=== PATIENT | female | born 1940 | race African-American/Black ===

== ENCOUNTER 2022-09-30 17:11 | Inpatient (IN) | payer OTHER ==
[~2022-09-30] VITALS: Ht 165.1 cm; Wt 57.2 kg
[2022-09-30] MEDS ORDERED: IV NORMAL SALINE 1000 ML BAG IV ONE (17:30)
[2022-09-30] MEDS ORDERED: ONDANSETRON 4 MG/2 ML VIAL ONE (18:08)
[2022-09-30] MEDS ORDERED: AMIODARONE HCL IV 900 MG in IV DEXTROSE 5% 500 ML IV ONE (18:30)
[2022-09-30] MEDS ORDERED: AMIODARONE HCL IV 150 MG in IV DEXTROSE 5% 100 ML IV ONE (18:30)
[2022-09-30] MEDS ORDERED: AMIODARONE HCL IV 900 MG in IV DEXTROSE 5% 482 ML IV PRN (18:45)
--- NOTE | 2022-09-30 19:05 | NUR ---
PICC line placed to left upper arm.
--- NOTE | 2022-09-30 19:10 | NUR ---
LAB AT BEDSIDE, RN DRAWING BLOOD FROM PIC LINE.
--- NOTE | 2022-09-30 19:22 | NUR ---
Dr. Birch given verbal to cancel Amiodarone bolus drip.
[2022-09-30 19:24] LABS: HEMATOCRIT 22.1 % (31.2-41.9); MEAN CORPUSCULAR HEMOGLOBIN 32.2 uug (24.7-32.8); MEAN CORPUSCULAR VOLUME 97.5 fL (75.5-95.3); PLATELET COUNT (AUTO) 113 K/uL (179-408)
[2022-09-30 19:35] LABS: CARBON DIOXIDE 27 mmol/L (21-32); CHLORIDE 98 mmol/L (98-107); CREATININE 1.9 mg/dL (0.6-1.3); GLUCOSE 245 mg/dL (74-106); POTASSIUM 3.3 mmol/L (3.5-5.1); UREA NITROGEN, BLOOD 19 mg/dL (7-18)
[2022-09-30 19:44] LABS: ALANINE AMINOTRANSFERASE 16 U/L (14-59); ALKALINE PHOSPHATASE 139 U/L (50-136); ASPARTATE AMINOTRANSFERASE 28 U/L (15-37); BILIRUBIN,DIRECT 0.2 mg/dL (0.0-0.2); BILIRUBIN,TOTAL 0.4 mg/dL (0.2-1.0); TOTAL PROTEIN, SERUM 4.6 g/dL (6.4-8.2)
--- NOTE | 2022-09-30 20:05 | NUR ---
Henok Tabares spoke to Vkias FRAUSTO, Dr Napoles. Waiting for transfer info at this time.
[2022-09-30] MEDS ORDERED: CEFTRIAXONE 1 G in IV DEXTROSE 5% 50 ML IV ONE (20:30)
[2022-09-30] MEDS ORDERED: ASPIRIN 81 MG TAB.CHEW PO ONE (20:30)
[2022-09-30] MEDS ORDERED: VANCOMYCIN 1G/D5W 200 ML PIGGYBACK IV ONE (20:30)
[2022-09-30] MEDS ORDERED: CEFTRIAXONE /D5W 50ML IVPB **ER PYXIS IV ONE (20:39)
--- NOTE | 2022-09-30 22:25 | NUR ---
Vikas gave autherization for patient to be admitted her to Dr Birch. Paged Epic panel election watcher at this time. Waiting Dr Pineda to call back.
--- NOTE | 2022-09-30 22:34 | NUR ---
Dr Birch spoke with Dr Pineda who accepts patient.
[2022-09-30] MEDS ORDERED: MORPHINE SULFATE 2 MG/1 ML DISP.SYRIN IV PRN (23:00)
[2022-09-30] MEDS ORDERED: ACETAMINOPHEN 325 MG TABLET PO PRN (23:00)
[2022-09-30] MEDS ORDERED: ONDANSETRON 4 MG/2 ML VIAL IV PRN (23:00)
[2022-09-30] MEDS ORDERED: HEPARIN/D5W DRIP 500 ML IV PRN (23:00)
--- NOTE | 2022-09-30 23:54 | NUR ---
Called third floor requesting tele bed. Patient has been admitted to room 330
--- NOTE | 2022-10-01 01:05 | NUR ---
Called third floor to give report, RN unavaliable. Waiting for call back.
--- NOTE | 2022-10-01 01:10 | NUR ---
Report given to Wilder TRACY.
[2022-10-01 02:00] VITALS: BP 110/54
[2022-10-01] MEDS ORDERED: PIPERACILLIN/TAZO 2.25 G in IV DEXTROSE 5% 50 ML IV SCH ×2 (02:00→08:00)
--- NOTE | 2022-10-01 02:00 | NUR ---
Admitted patient in tele floor, with ACS diagnosis, patient alert oriented, with right chest dialysis marian catheter, patient also has left upper arm PICC line. sinus rhythm, no complain of pain, kept comfortable, call light within reach.
--- NOTE | 2022-10-01 02:05 | NUR ---
Patient taken to third floor room 330 via gurney with personal belongings. Patient in stable condition no signs of distress. Will RN aware of patients arrival
[2022-10-01] MEDS ORDERED: PIPERACILLIN/TAZOBACTAM/D5W 50 ML ONE (03:05)
[2022-10-01] MEDS ORDERED: PANTOPRAZOLE SODIUM 40 MG TABLET.DR PO SCH (07:00)
--- NOTE | 2022-10-01 07:00 | NUR ---
Admitted patient from ER with existing order to give Heparin drip due to troponin being high. ER nurse did not report that patient has heparin order, and received patient with no Heparin drip going. Patient Heparin drip started in AM. Patient alert oriented, verbally responsive, no adverse changes noted, tele rhythm remain sinus rhythm, v/s stable, blood work was monitored, v/s was monitored, Dr Galalrdo aware of heparin medication started in AM. cont to monitor
--- NOTE | 2022-10-01 07:30 | NUR ---
Patient remains alert oriented, no adverse changes noted, endorsed to next shift.
[2022-10-01] MEDS ORDERED: DEXTROSE 50% 50 ML DISP.SYRIN IV PRN (07:45)
[2022-10-01 07:49] LABS: MEAN CORPUSCULAR HEMOGLOBIN 32.7 uug (24.7-32.8); MEAN CORPUSCULAR VOLUME 97.6 fL (75.5-95.3); PLATELET COUNT (AUTO) 123 K/uL (179-408)
[2022-10-01 08:00] VITALS: BP 129/60
--- NOTE | 2022-10-01 08:00 | NUR ---
Received patient lying in bed awake, alert and oriented. PICC at left upper arm intact and patent, marian cath at right chest. SR on tele monitor at 83bpm. with O2 inhalation at 3lpm via nasal cannula saturating at 92%. No signs of distress or SOB. Needs attended
[2022-10-01] MEDS ORDERED: HEPARIN SODIUM,PORCINE 5,000 UNITS/ML VIAL IV ONE (08:30)
[2022-10-01] MEDS ORDERED: ATORVASTATIN 40 MG TABLET PO SCH ×2 (08:30→08:42)
[2022-10-01 08:47] LABS: IRON, SERUM 45 ug/dL (50-175)
[2022-10-01 08:50] LABS: ALANINE AMINOTRANSFERASE 24 U/L (14-59); ALKALINE PHOSPHATASE 128 U/L (50-136); ASPARTATE AMINOTRANSFERASE 56 U/L (15-37); BILIRUBIN,TOTAL 0.2 mg/dL (0.2-1.0); CARBON DIOXIDE 25 mmol/L (21-32); CHLORIDE 99 mmol/L (98-107); CHOLESTEROL 91 mg/dL (<200); CREATININE 2.2 mg/dL (0.6-1.3); GLUCOSE 186 mg/dL (74-106); HDL CHOLESTEROL 64 mg/dL (40-60); MAGNESIUM 1.5 mg/dL (1.8-2.4); PHOSPHOROUS 3.4 mg/dL (2.5-4.9); POTASSIUM 3.5 mmol/L (3.5-5.1); TOTAL PROTEIN, SERUM 4.7 g/dL (6.4-8.2); TRIGLYCERIDES 61 MG/DL (30-150); UREA NITROGEN, BLOOD 26 mg/dL (7-18)
--- NOTE | 2022-10-01 08:55 | NUR ---
Started Heparin 3,500 units IV bolus then Heparin drip at 850 units/hr infusing well. Oral medications tolerated well. No complain Seen and examined by Dr. Kate Observed accordingly
[2022-10-01] MEDS ORDERED: ASPIRIN EC 81 MG TABLET.DR PO SCH (09:00)
[2022-10-01] MEDS ORDERED: METOPROLOL TARTRATE 25 MG TABLET PO SCH (09:00)
[2022-10-01 09:06] LABS: THYROID STIMULATING HORMONE 3.348 mIU/mL (0.358-3.740)
[2022-10-01] MEDS ORDERED: FURO-151 PO (09:25)
[2022-10-01] MEDS ORDERED: APIX5TAB PO (09:25)
[2022-10-01] MEDS ORDERED: CLOP75TA15 PO (09:25)
[2022-10-01] MEDS ORDERED: TRAZ-182 PO (09:25)
[2022-10-01] MEDS ORDERED: ISOS120T13 PO (09:25)
[2022-10-01] MEDS ORDERED: CARV3.12 PO (09:25)
[2022-10-01] MEDS ORDERED: GABA-532 PO (09:25)
[2022-10-01] MEDS ORDERED: ATOR80TA PO (09:25)
[2022-10-01] MEDS ORDERED: NPH,100V SQ (09:25)
[2022-10-01] MEDS ORDERED: ASPI81TA31 PO (09:25)
[2022-10-01] MEDS ORDERED: BUPR100T5 PO (09:25)
[2022-10-01] MEDS ORDERED: VANCOMYCIN IV 500 MG in IV DEXTROSE 5% 100 ML IV PRN (09:45)
[2022-10-01] MEDS: AMIODARONE HCL 200 MG TABLET PO SCH ×2 (09:51→14:52)
--- NOTE | 2022-10-01 10:00 | NUR ---
Seen patient in bed comfortably resting, turn patient from side to side every 2 hours. No complain, needs attended. Morning care done.
--- NOTE | 2022-10-01 10:34 | NUR ---
Relayed results to Dr. Gallardo and DR. Kate critical lab value Trop I- 13,726 and BNP- >70,000.
[2022-10-01] MEDS: BLOOD SUGAR DIAGNOSTIC 1 EACH STRIP VI SCH ×2 (11:29→17:25)
[2022-10-01] MEDS: PIPERACILLIN/TAZO 2.25 G in IV DEXTROSE 5% 50 ML IV SCH ×2 (11:30→18:53)
[2022-10-01] MEDS: INSULIN REGULAR, HUMAN 300 UNIT/3 ML VIAL SQ PRN ×2 (11:35→17:27)
[2022-10-01 11:39] VITALS: BP 99/52
--- NOTE | 2022-10-01 14:53 | NUR ---
Laboratory came for blood extraction PTT after 6 hours of Heparin.
[2022-10-01 16:00] VITALS: BP 96/47
--- NOTE | 2022-10-01 16:52 | NUR ---
Received a call from laboratory relaying critical result for repeat PTT 6 hours of infusion, PTT- [address] Gallardo. 1655 - Hold Heparin infusion for 60 mins., then decrease rate by 200 units/hr, Repeat PTT due at 2400. Patient has ordered for transfer to [facility], prepared all documents for transfer and signed consent for transfer. Addendum: 10/01/22 at 2014 by GENO WHATLEY RN Correction of time: 1755 - Hold Hepatin drip for 60 minutes 1855 - Resume Heparin drip, then decrease rate by 200 units/hr 2400 - Repeat PTT
[2022-10-01] MEDS ORDERED: INSU100V28 SQ (19:51)
[2022-10-01] MEDS ORDERED: METO25TA6 PO (19:51)
[2022-10-01] MEDS ORDERED: ATOR40TA PO (19:51)
[2022-10-01] MEDS ORDERED: RXVAN IV (19:51)
[2022-10-01] MEDS ORDERED: AMIO200T6 PO (19:51)
[2022-10-01] MEDS ORDERED: PIPE2.257 IV (19:51)
[2022-10-01] MEDS ORDERED: ASPI-618 PO (19:51)
[2022-10-01] MEDS ORDERED: ACET325T53 PO (19:51)
[2022-10-01] MEDS ORDERED: heparin drip (19:55)
[2022-10-01 20:40] VITALS: BP 102/51
--- NOTE | 2022-10-01 20:45 | NUR ---
AOx4. IV site on L UA ML intact and patent. Heparin drip running at 650 unit/hr. O2 at 4LPM sating at 98%. No SOB or discomfort noted. Vital Signs stable. Pt transferred to [facility] for higher level of care. ROSSANA Masters gave report to Trang at [place]. Pt picked up by CCT. Report and discharge paperwork given to EMT. IV site left in place. ID band removed. All belongings complete and documented endorsed to EMT. Home medications still at Pharmacy. 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
== END 2022-10-01 20:50 | disposition short-term general hospital (02) | DRG 871 ==
LOC: ER 17:11 → TELE3 23:00
PROVIDERS: ADMIT Internal Medicine; ATTEND Internal Medicine
PROC: 05H433Z Insertion of Infusion Device into Left Innominate Vein, Percutaneous Approach (ICD-10-PCS; principal; 2022-09-30)
DX: A41.9 Sepsis, unspecified organism (principal); E43 Unspecified severe protein-calorie malnutrition; J96.01 Acute respiratory failure with hypoxia; I50.23 Acute on chronic systolic (congestive) heart failure; N18.6 End stage renal disease; I21.A1 Myocardial infarction type 2; E87.1 Hypo-osmolality and hyponatremia; D68.59 Other primary thrombophilia; I13.2 Hypertensive heart and chronic kidney disease with heart failure and with stage 5 chronic kidney disease, or end stage renal disease; I47.1 Supraventricular tachycardia; E87.20 Acidosis, unspecified; F17.210 Nicotine dependence, cigarettes, uncomplicated; D53.9 Nutritional anemia, unspecified; E87.6 Hypokalemia; E11.22 Type 2 diabetes mellitus with diabetic chronic kidney disease; D63.1 Anemia in chronic kidney disease; I95.9 Hypotension, unspecified; Z20.822 Contact with and (suspected) exposure to COVID-19; I25.10 Atherosclerotic heart disease of native coronary artery without angina pectoris; M19.90 Unspecified osteoarthritis, unspecified site; D69.6 Thrombocytopenia, unspecified; I25.2 Old myocardial infarction; N25.0 Renal osteodystrophy; I25.5 Ischemic cardiomyopathy; Z90.49 Acquired absence of other specified parts of digestive tract; Z74.09 Other reduced mobility; Z98.42 Cataract extraction status, left eye; Z98.41 Cataract extraction status, right eye; Z90.710 Acquired absence of both cervix and uterus; Z99.2 Dependence on renal dialysis; Z98.61 Coronary angioplasty status; E11.65 Type 2 diabetes mellitus with hyperglycemia; I34.0 Nonrheumatic mitral (valve) insufficiency; J44.9 Chronic obstructive pulmonary disease, unspecified
CPT/HCPCS: 36415; 36569; 71045; 83550; 83605; 83735; 84100; 84443; 84484; 85025; 85730; 86850; 86900; 86901; 87040; 93005; 93307; C1758; G0378; J0282; J0696; J1644; J1815; J2405; J2543; J3370; J7040; J7060